=== PATIENT | male | born 1990 | race Caucasian/White ===

== ENCOUNTER 2016-07-08 22:15 | Emergency (ER) | payer BC, OTHER ==
[2016-07-08] MEDS ORDERED: GENTAMICIN 0.3% OPHTH SOL 5 ML BTL As Ordered ONE (23:18)
--- NOTE | 2016-07-08 23:29 | EDDOCDS ---
Physician Documentation [facility] Name: Ike Kennedy Age: 25 yrs Sex: Male : 1990 Arrival Date: 07/08/2016 Time: 22:15 Bed I1 Private MD: NO PRIMARY PHYSICIAN, . Disposition: 07/08/16 23:17 Discharged to Home/Self Care. Impression: Conjunctivitis - Acute, Bilateral. - Condition is Stable. - Discharge Instructions: Conjunctivitis (Viral and Bacterial). - Prescriptions for Gentamicin 0.3 % Ophthalmic Drops - instill 2 drops by OPHTHALMIC route every 4 hours for 7 days Treating Conjunctivitis both eyes; 1 bottle. - Medication Reconciliation, Local Pharmacy Hours, Referral List Call for Appointment form. - Follow up: [facility]; When: 1 - 2 days; Reason: Further diagnostic work-up, Recheck today's complaints, Continuance of care. [facility] ; When: 1 - 2 days; Reason: Recheck today's complaints, Continuance of care. Follow up: Emergency Department; Reason: Worsening of conditions. - Problem is new. - Symptoms have improved. Historical: - Allergies: PENICILLINS (Unknown); - Home Meds: 1. Ventolin Rotahaler/Rotacaps 200 mcg Inhl CpDv as needed - PMHx: Asthma; - PSHx: Tonsillectomy; - Social history: Smoking status: Patient states was never smoker of tobacco. No barriers to communication noted, Speaks appropriately for age. - Family history: No immediate family members are acutely ill. - : The pt / caregiver states he / she is not on anticoagulants. Home medication list is obtained from the patient. - Exposure Risk Screening:: None identified. Vital Signs: 07/08 22:16 BP 154 / 89; Pulse 52; Resp 18; Temp 96.5(O); Pulse Ox 100% on R/A; Weight 81.65 kg / lr2 180.01 lbs (R); Height 5 ft. 6 in. (167.64 cm) (R); Pain 5/10; 23:27 BP 144 / 97; Pulse 74; Resp 18; Temp 97.5; Pulse Ox 98% on R/A; Pain 4/10; nn1 22:16 Body Mass Index 29.05 (81.65 kg, 167.64 cm) lr2 Visual Acuity: 22:31 Left Eye Visual acuity 20/30, Pupil size 3 mm, ; Right Eye Visual acuity 20/30, Pupil cz size 3 mm, ; Both Eyes Visual acuity 20/30; Without Lenses; MDM: 23:14 Gentamicin Drops 0.3 % 2 drps Ophthalmic once; Both eyes please ordered. ef1 23:28 Financial registration complete. ks16 23:29 [facility] Payment Agreement was scanned into [employer] and attached to record. ks16 Administered Medications: 23:26 Drug: Gentamicin 2 drps [gentamicin 0.3 % eye drops (2 drps)] Route: Ophthalmic; Site: [facility] both eyes; Signatures: Jessica Fofana PA-C PAKamran ef1 Lazara Montejo RN RN rs3 Souleymane Sutherland RN RN nn1 Sunshine Puga, Reg Reg ks16 The chart was reviewed and I authenticate all verbal orders and agree with the evaluation and treatment provided.Attachments: 23:29 [facility] Payment Agreement ks16 MTDD
--- NOTE | 2016-07-08 23:29 | EDDOCDS ---
Nurse's Notes [facility] Name: Ike Kennedy Age: 25 yrs Sex: Male : 1990 Arrival Date: 07/08/2016 Time: 22:15 Bed I1 Private MD: NO PRIMARY PHYSICIAN, . Diagnosis: Conjunctivitis-Acute, Bilateral Presentation: 07/08 22:18 Presenting complaint: Patient states: redness and drainage in both eyes since this rs3 morning. L eye worse than the right. Mechanism of Injury: No Mechanism of Injury. The patient denies any loss of vision. Adult Sepsis Screening: The patient does not have new or worsening altered mentation. Patient's respiratory rate is less than 22. Systolic blood pressure is greater than 100. Patient has a qSOFA score of 0- Negative Sepsis Screen. Suicide/Homicide risk assessment- the patient denies having any suicidal and/or homicidal ideations and does not present with any other emotional, behavioral or mental health complaints. 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 Transition of care: patient was not received from another setting of care. 22:18 Acuity: JAZMIN Level 4 rs3 22:18 Method Of Arrival: Walkin/Carried/Asstd rs3 Triage Assessment: 22:20 General: Appears in no apparent distress. Pain: Location: left eye. Pt Declines HIV rs3 testing. EENT: Reports pain Pain is 3 out of 10 on a pain scale. Historical: - Allergies: PENICILLINS (Unknown); - Home Meds: 1. Ventolin Rotahaler/Rotacaps 200 mcg Inhl CpDv as needed - PMHx: Asthma; - PSHx: Tonsillectomy; - Social history: Smoking status: Patient states was never smoker of tobacco. No barriers to communication noted, Speaks appropriately for age. - Family history: No immediate family members are acutely ill. - : The pt / caregiver states he / she is not on anticoagulants. Home medication list is obtained from the patient. - Exposure Risk Screening:: None identified. Screenin:27 Screening information is obtained from the patient. Fall risk: No risks identified. nn1 Assistance ADL's: requires no assistance with activities of daily living. Abuse/DV Screen: The patient / caregiver reports he/she is: not in a situation that causes fear, pain or injury. Nutritional screening: No deficits noted. Advance Directives: There is no active DNR order. home support is adequate. Assessment: 22:30 General: alert male with bilateral eye discomfort no injury left sclera cloudy slightly cz reddened. EENT: Eyes are tearing on outer aspect of conjuctiva of right eye, inner aspect of conjuctiva of right eye, outer aspect of conjuctiva of left eye and inner aspect of conjunctiva of left eye Sclera/Cornea are cloudy in iris of right eye, inner aspect of conjuctiva of right eye, outer aspect of conjuctiva of left eye and inner aspect of conjunctiva of left eye. 23:26 EENT: Eyes are tearing on right eye and left eye Sclera/Cornea are reddened in right nn1 eye and left eye. Derm: Skin is pink, warm & dry. Vital Signs: 22:16 BP 154 / 89; Pulse 52; Resp 18; Temp 96.5(O); Pulse Ox 100% on R/A; Weight 81.65 kg lr2 (R); Height 5 ft. 6 in. (167.64 cm) (R); Pain 5/10; 23:27 BP 144 / 97; Pulse 74; Resp 18; Temp 97.5; Pulse Ox 98% on R/A; Pain 4/10; nn1 22:16 Body Mass Index 29.05 (81.65 kg, 167.64 cm) lr2 Vitals: 22:16 Log In Time: July 08, 2016 at 22:15. lr2 Visual Acuity: 22:31 Left Eye Visual acuity 20/30, Pupil size 3 mm, ; Right Eye Visual acuity 20/30, Pupil cz size 3 mm, ; Both Eyes Visual acuity 20/30; Without Lenses; ED Course: 22:15 Patient visited by Janna Miller. lr2 22:15 Patient moved to Waiting lr2 22:17 NO PRIMARY PHYSICIAN, . is Private Physician. lr2 22:17 Patient moved to Pre RCE lr2 22:19 Triage Initiated rs3 22:25 Patient moved to I10 / 23 cz 23:05 Jessica Fofana PA-C is PHCP. ef1 23:05 Karl Tena DO is Attending Physician. ef1 23:05 Patient visited by Jessica Fofana PA-C. ef1 23:17 G[facility] Kinney is Referral Physician. ef1 23:17 [facility] is Referral Physician. ef1 23:27 No IV's were initiated during this patient's visit. No procedures done that require nn1 assistance. 23:28 The patient / caregiver is instructed regarding the plan of care and ED course. nn1 23:29 [facility] Payment Agreement was scanned into [employer] and attached to record. ks16 Administered Medications: 23:26 Drug: Gentamicin 2 drps [gentamicin 0.3 % eye drops (2 drps)] Route: Ophthalmic; Site: nn both eyes; Order Results: There are currently no results for this order. Outcome: 23:17 Discharge ordered by Provider. ef1 23:27 Discharge Assessment: Patient awake, alert and oriented x 3. No cognitive and/or nn1 functional deficits noted. Patient verbalized understanding of disposition instructions. patient administered narcotics - no. The following High Risk Discharge criteria are identified: None. Discharged to home ambulatory, with friend. Condition: stable. Discharge instructions given to patient, Instructed on discharge instructions, follow up and referral plans. medication usage, Demonstrated understanding of instructions, medications, Pt was receptive of discharge instructions/ teaching. Prescriptions given X 1. No special radiology studies were completed. Property :Personal belongings accompany Pt. 23:28 Patient left the ED. nn1 Signatures: Boogie Cook, RN RN Jessica Garcia PA-C PA-C ef1 Lazara Montejo RN RN rs3 Souleymane Sutherland RN RN nn1 Sunshine Puga, Reg Reg ks16 Janna Miller2 MTDD
--- NOTE | 2016-07-11 00:29 | EDDOCDS ---
Nurse's Notes [facility] Name: Ike Kennedy Age: 25 yrs Sex: Male : 1990 Arrival Date: 07/08/2016 Time: 22:15 Bed I1 Private MD: NO PRIMARY PHYSICIAN, . Diagnosis: Conjunctivitis-Acute, Bilateral Presentation: 07/08 22:18 Presenting complaint: Patient states: redness and drainage in both eyes since this rs3 morning. L eye worse than the right. Mechanism of Injury: No Mechanism of Injury. The patient denies any loss of vision. Adult Sepsis Screening: The patient does not have new or worsening altered mentation. Patient's respiratory rate is less than 22. Systolic blood pressure is greater than 100. Patient has a qSOFA score of 0- Negative Sepsis Screen. Suicide/Homicide risk assessment- the patient denies having any suicidal and/or homicidal ideations and does not present with any other emotional, behavioral or mental health complaints. Status: Patient is not a director of special services or dependent. Transition of care: patient was not received from another setting of care. 22:18 Acuity: JAZMIN Level 4 rs3 22:18 Method Of Arrival: Walkin/Carried/Asstd rs3 Triage Assessment: 22:20 General: Appears in no apparent distress. Pain: Location: left eye. Pt Declines HIV rs3 testing. EENT: Reports pain Pain is 3 out of 10 on a pain scale. Historical: - Allergies: PENICILLINS (Unknown); - Home Meds: 1. Ventolin Rotahaler/Rotacaps 200 mcg Inhl CpDv as needed - PMHx: Asthma; - PSHx: Tonsillectomy; - Social history: Smoking status: Patient states was never smoker of tobacco. No barriers to communication noted, Speaks appropriately for age. - Family history: No immediate family members are acutely ill. - : The pt / caregiver states he / she is not on anticoagulants. Home medication list is obtained from the patient. - Exposure Risk Screening:: None identified. Screenin:27 Screening information is obtained from the patient. Fall risk: No risks identified. nn1 Assistance ADL's: requires no assistance with activities of daily living. Abuse/DV Screen: The patient / caregiver reports he/she is: not in a situation that causes fear, pain or injury. Nutritional screening: No deficits noted. Advance Directives: There is no active DNR order. home support is adequate. Assessment: 22:30 General: alert male with bilateral eye discomfort no injury left sclera cloudy slightly cz reddened. EENT: Eyes are tearing on outer aspect of conjuctiva of right eye, inner aspect of conjuctiva of right eye, outer aspect of conjuctiva of left eye and inner aspect of conjunctiva of left eye Sclera/Cornea are cloudy in iris of right eye, inner aspect of conjuctiva of right eye, outer aspect of conjuctiva of left eye and inner aspect of conjunctiva of left eye. 23:26 EENT: Eyes are tearing on right eye and left eye Sclera/Cornea are reddened in right nn1 eye and left eye. Derm: Skin is pink, warm & dry. Vital Signs: 22:16 BP 154 / 89; Pulse 52; Resp 18; Temp 96.5(O); Pulse Ox 100% on R/A; Weight 81.65 kg lr2 (R); Height 5 ft. 6 in. (167.64 cm) (R); Pain 5/10; 23:27 BP 144 / 97; Pulse 74; Resp 18; Temp 97.5; Pulse Ox 98% on R/A; Pain 4/10; nn1 22:16 Body Mass Index 29.05 (81.65 kg, 167.64 cm) lr2 Vitals: 22:16 Log In Time: July 08, 2016 at 22:15. lr2 Visual Acuity: 22:31 Left Eye Visual acuity 20/30, Pupil size 3 mm, ; Right Eye Visual acuity 20/30, Pupil cz size 3 mm, ; Both Eyes Visual acuity 20/30; Without Lenses; ED Course: 22:15 Patient visited by Janna Miller. lr2 22:15 Patient moved to Waiting lr2 22:17 NO PRIMARY PHYSICIAN, . is Private Physician. lr2 22:17 Patient moved to Pre RCE lr2 22:19 Triage Initiated rs3 22:25 Patient moved to I10 / 23 cz 23:05 Jessica Fofana PA-C is PHCP. ef1 23:05 Karl Tena DO is Attending Physician. ef1 23:05 Patient visited by Jessica Fofana PA-C. ef1 23:17 Gerson Kinney is Referral Physician. ef1 23:17 [facility] is Referral Physician. ef1 23:27 No IV's were initiated during this patient's visit. No procedures done that require nn1 assistance. 23:28 The patient / caregiver is instructed regarding the plan of care and ED course. nn1 23:29 [facility] Payment Agreement was scanned into [employer] and attached to record. ks16 23:29 [facility] Payment Agreement was scanned into [employer] and attached to record. ks16 07/09 17:41 T-Sheet-- Draft Copy was scanned into [employer] and attached to record. klr Administered Medications: 07/08 23:26 Drug: Gentamicin 2 drps [gentamicin 0.3 % eye drops (2 drps)] Route: Ophthalmic; Site: [facility] both eyes; Order Results: There are currently no results for this order. Outcome: 23:17 Discharge ordered by Provider. ef1 23:27 Discharge Assessment: Patient awake, alert and oriented x 3. No cognitive and/or nn1 functional deficits noted. Patient verbalized understanding of disposition instructions. patient administered narcotics - no. The following High Risk Discharge criteria are identified: None. Discharged to home ambulatory, with friend. Condition: stable. Discharge instructions given to patient, Instructed on discharge instructions, follow up and referral plans. medication usage, Demonstrated understanding of instructions, medications, Pt was receptive of discharge instructions/ teaching. Prescriptions given X 1. No special radiology studies were completed. Property :Personal belongings accompany Pt. 23:28 Patient left the ED. nn1 Signatures: Boogie Cook RN RN cz Feola, Erica, PA-C PA-C ef1 Lazara Montejo RN RN rs3 Souleymane Sutherland RN RN nn1 Sunshine Puga, Reg Reg ks16 Jessi Wilburn Laura lr2 Chart Complete MTDD
--- NOTE | 2016-07-11 00:29 | EDDOCDS ---
Physician Documentation [facility] Name: Ike Kennedy Age: 25 yrs Sex: Male : 1990 Arrival Date: 07/08/2016 Time: 22:15 Bed I1 Private MD: NO PRIMARY PHYSICIAN, . Disposition: 07/08/16 23:17 Discharged to Home/Self Care. Impression: Conjunctivitis - Acute, Bilateral. - Condition is Stable. - Discharge Instructions: Conjunctivitis (Viral and Bacterial). - Prescriptions for Gentamicin 0.3 % Ophthalmic Drops - instill 2 drops by OPHTHALMIC route every 4 hours for 7 days Treating Conjunctivitis both eyes; 1 bottle. - Medication Reconciliation, Local Pharmacy Hours, Referral List Call for Appointment form. - Follow up: [facility]; When: 1 - 2 days; Reason: Further diagnostic work-up, Recheck today's complaints, Continuance of care. Follow [facility] ; When: 1 - 2 days; Reason: Recheck today's complaints, Continuance of care. Follow up: Emergency Department; Reason: Worsening of conditions. - Problem is new. - Symptoms have improved. Historical: - Allergies: PENICILLINS (Unknown); - Home Meds: 1. Ventolin Rotahaler/Rotacaps 200 mcg Inhl CpDv as needed - PMHx: Asthma; - PSHx: Tonsillectomy; - Social history: Smoking status: Patient states was never smoker of tobacco. No barriers to communication noted, Speaks appropriately for age. - Family history: No immediate family members are acutely ill. - : The pt / caregiver states he / she is not on anticoagulants. Home medication list is obtained from the patient. - Exposure Risk Screening:: None identified. Vital Signs: 07/08 22:16 BP 154 / 89; Pulse 52; Resp 18; Temp 96.5(O); Pulse Ox 100% on R/A; Weight 81.65 kg / lr2 180.01 lbs (R); Height 5 ft. 6 in. (167.64 cm) (R); Pain 5/10; 23:27 BP 144 / 97; Pulse 74; Resp 18; Temp 97.5; Pulse Ox 98% on R/A; Pain 4/10; nn1 22:16 Body Mass Index 29.05 (81.65 kg, 167.64 cm) lr2 Visual Acuity: 22:31 Left Eye Visual acuity 20/30, Pupil size 3 mm, ; Right Eye Visual acuity 20/30, Pupil cz size 3 mm, ; Both Eyes Visual acuity 20/30; Without Lenses; MDM: 23:14 Gentamicin Drops 0.3 % 2 drps Ophthalmic once; Both eyes please ordered. ef1 23:28 Financial registration complete. [facility] : [place] Payment Agreement was scanned into [employer] and attached to record. ks : [place] Payment Agreement was scanned into [employer] and attached to record. 07/09 17:41 T-Sheet-- Draft Copy was scanned into [employer] and attached to record. klr Administered Medications: 07/08 23:26 Drug: Gentamicin 2 drps [gentamicin 0.3 % eye drops (2 drps)] Route: Ophthalmic; Site: [facility] both eyes; Signatures: Jessica Fofana, MONICA ANDERSON ef1 Lazara Montejo RN RN rs3 Souleymane Sutherland RN RN nn1 Sunshine Puga, Reg Reg ks16 Jessi Wilburn klr The chart was reviewed and I authenticate all verbal orders and agree with the evaluation and treatment provided.Attachments: : [place] Payment Agreement ks [place] Payment Agreement [facility] 07/09 17:41 T-Sheet-- Draft Copy klr Chart Complete MTDD
--- NOTE | 2016-07-11 00:29 | EDDOCDS ---
Physician Documentation [facility] Name: Ike Kennedy Age: 25 yrs Sex: Male : 1990 Arrival Date: 07/08/2016 Time: 22:15 Bed I1 Private MD: NO PRIMARY PHYSICIAN, . Disposition: 07/08/16 23:17 Discharged to Home/Self Care. Impression: Conjunctivitis - Acute, Bilateral. - Condition is Stable. - Discharge Instructions: Conjunctivitis (Viral and Bacterial). - Prescriptions for Gentamicin 0.3 % Ophthalmic Drops - instill 2 drops by OPHTHALMIC route every 4 hours for 7 days Treating Conjunctivitis both eyes; 1 bottle. - Medication Reconciliation, Local Pharmacy Hours, Referral List Call for Appointment form. - Follow up: [facility]; When: 1 - 2 days; Reason: Further diagnostic work-up, Recheck today's complaints, Continuance of care. Follow [facility] ; When: 1 - 2 days; Reason: Recheck today's complaints, Continuance of care. Follow up: Emergency Department; Reason: Worsening of conditions. - Problem is new. - Symptoms have improved. Historical: - Allergies: PENICILLINS (Unknown); - Home Meds: 1. Ventolin Rotahaler/Rotacaps 200 mcg Inhl CpDv as needed - PMHx: Asthma; - PSHx: Tonsillectomy; - Social history: Smoking status: Patient states was never smoker of tobacco. No barriers to communication noted, Speaks appropriately for age. - Family history: No immediate family members are acutely ill. - : The pt / caregiver states he / she is not on anticoagulants. Home medication list is obtained from the patient. - Exposure Risk Screening:: None identified. Vital Signs: 07/08 22:16 BP 154 / 89; Pulse 52; Resp 18; Temp 96.5(O); Pulse Ox 100% on R/A; Weight 81.65 kg / lr2 180.01 lbs (R); Height 5 ft. 6 in. (167.64 cm) (R); Pain 5/10; 23:27 BP 144 / 97; Pulse 74; Resp 18; Temp 97.5; Pulse Ox 98% on R/A; Pain 4/10; nn1 22:16 Body Mass Index 29.05 (81.65 kg, 167.64 cm) lr2 Visual Acuity: 22:31 Left Eye Visual acuity 20/30, Pupil size 3 mm, ; Right Eye Visual acuity 20/30, Pupil cz size 3 mm, ; Both Eyes Visual acuity 20/30; Without Lenses; MDM: 23:14 Gentamicin Drops 0.3 % 2 drps Ophthalmic once; Both eyes please ordered. ef1 23:28 Financial registration complete. [facility] : [place] Payment Agreement was scanned into [employer] and attached to record. ks : [place] Payment Agreement was scanned into [employer] and attached to record. 07/09 17:41 T-Sheet-- Draft Copy was scanned into [employer] and attached to record. klr Administered Medications: 07/08 23:26 Drug: Gentamicin 2 drps [gentamicin 0.3 % eye drops (2 drps)] Route: Ophthalmic; Site: [facility] both eyes; Signatures: Jessica Fofana, MONICA ANDERSON ef1 Lazara Montejo RN RN rs3 Souleymane Sutherland RN RN nn1 Sunshine Puga, Reg Reg ks16 Jessi Wilburn klr The chart was reviewed and I authenticate all verbal orders and agree with the evaluation and treatment provided.Attachments: : [place] Payment Agreement ks [place] Payment Agreement [facility] 07/09 17:41 T-Sheet-- Draft Copy klr Chart Complete MTDD
== END 2016-07-08 23:28 | disposition home or self-care (01) ==
LOC: M ED 22:15
DX: H10.31 Unspecified acute conjunctivitis, right eye (principal); J45.909 Unspecified asthma, uncomplicated; Z88.0 Allergy status to penicillin

== ENCOUNTER 2016-10-27 17:11 | Emergency (ER) | payer BC, OTHER ==
[~2016-10-27] VITALS: Ht 167.6 cm; Wt 87.9 kg
[2016-10-27 17:12] VITALS: BP 156/99
[2016-10-27] MEDS ORDERED: ALBU17IN2 INH (18:04)
== END 2016-10-27 18:15 | disposition home or self-care (01) ==
LOC: M ED 17:48
DX: Z76.0 Encounter for issue of repeat prescription (principal); J45.909 Unspecified asthma, uncomplicated; Z88.0 Allergy status to penicillin

== ENCOUNTER → 2020-01-22 | Outpatient (REF) | payer OTHER ==
[~2020-01-22] MED LIST: ALBU17IN2 INH
[2020-01-22 12:55] LABS: BASO # 0.1 10^3/uL (0.0-0.2); BASO % 0.7 % (0.0-1.0); EOS # 0.3 10^3/uL (0.0-0.5); EOS % 4.3 % (0.0-3.0); HEMATOCRIT 49.9 % (42.0-52.0); HEMOGLOBIN 17.3 g/dl (13.5-17.5); LYMPH # 2.7 10^3/uL (1.5-5.0); LYMPH % 36.8 % (24.0-44.0); MEAN CORPUSCULAR HEMOGLOBIN 30.1 pg (27.0-33.0); MEAN CORPUSCULAR HGB CONC 34.7 g/dl (32.0-36.5); MEAN CORPUSCULAR VOLUME 86.8 fl (80.0-96.0); MONO # 0.5 10^3/uL (0.0-0.8); MONO % 6.6 % (0.0-5.0); NEUTROPHILS # 3.8 10^3/uL (1.5-8.5); NEUTROPHILS % 51.3 % (36.0-66.0); PLATELET COUNT, AUTOMATED 257 10^3/uL (150-450); RED BLOOD COUNT 5.75 10^6/uL (4.30-6.10); WHITE BLOOD COUNT 7.4 10^3/uL (4.0-10.0)
[2020-01-22 13:10] LABS: ALBUMIN 4.1 GM/DL (3.2-5.2); ALT/SGPT 38 U/L (12-78); BILIRUBIN,TOTAL 0.8 MG/DL (0.2-1.0); BLOOD UREA NITROGEN 11 MG/DL (7-18); CALCIUM LEVEL 8.8 MG/DL (8.5-10.1); CARBON DIOXIDE LEVEL 28 MEQ/L (21-32); CHLORIDE LEVEL 106 MEQ/L (98-107); CHOLESTEROL LEVEL 188 MG/DL (<200); CREATININE FOR GFR 1.16 MG/DL (0.70-1.30); FREE T4 1.02 NG/DL (0.76-1.46); GLOMERULAR FILTRATION RATE > 60.0 (>60); GLUCOSE, FASTING 92 MG/DL (70-100); HDL CHOLESTEROL 39 MG/DL (>40); LDL CHOLESTEROL 129 MG/DL (<100); NON-HDL-C 149 MG/DL; POTASSIUM SERUM 3.6 MEQ/L (3.5-5.1); SODIUM LEVEL 138 MEQ/L (136-145); TOTAL PROTEIN 7.2 GM/DL (6.4-8.2); TRIGLYCERIDES LEVEL 99 MG/DL (<150)
[2020-01-22 13:11] LABS: TOTAL 25(OH) VITAMIN D 12.2 NG/ML (30.0-100.0)
== END ==
LOC: M LAB REF 11:11
PROVIDERS: ATTEND Physician Assistant
DX: R03.0 Elevated blood-pressure reading, without diagnosis of hypertension (principal); Z82.49 Family history of ischemic heart disease and other diseases of the circulatory system; Z83.3 Family history of diabetes mellitus; G56.02 Carpal tunnel syndrome, left upper limb; Z00.01 Encounter for general adult medical examination with abnormal findings; J45.20 Mild intermittent asthma, uncomplicated; E66.09 Other obesity due to excess calories; Z68.33 Body mass index [BMI] 33.0-33.9, adult

== ENCOUNTER → 2020-02-26 | Outpatient (REF) | payer OTHER ==
[2020-02-26 16:03] LABS: BLOOD UREA NITROGEN 12 MG/DL (7-18); CARBON DIOXIDE LEVEL 27 MEQ/L (21-32); CHLORIDE LEVEL 106 MEQ/L (98-107); CREATININE FOR GFR 1.18 MG/DL (0.70-1.30); GLOMERULAR FILTRATION RATE > 60.0 (>60); GLUCOSE, FASTING 82 MG/DL (70-100); POTASSIUM SERUM 4.9 MEQ/L (3.5-5.1); SODIUM LEVEL 138 MEQ/L (136-145)
== END ==
LOC: M LAB REF 15:11
PROVIDERS: ATTEND Physician Assistant
DX: I10 Essential (primary) hypertension (principal)

== ENCOUNTER → 2020-06-03 | Outpatient (REF) | payer OTHER ==
[2020-06-03 16:40] LABS: ALBUMIN 4.3 GM/DL (3.2-5.2); ALT/SGPT 34 U/L (12-78); BILIRUBIN,TOTAL 1.1 MG/DL (0.2-1.0); BLOOD UREA NITROGEN 15 MG/DL (7-18); CALCIUM LEVEL 10.2 MG/DL (8.5-10.1); CARBON DIOXIDE LEVEL 28 MEQ/L (21-32); CHLORIDE LEVEL 105 MEQ/L (98-107); CREATININE FOR GFR 1.28 MG/DL (0.70-1.30); GLOMERULAR FILTRATION RATE > 60.0 (>60); GLUCOSE, FASTING 85 MG/DL (70-100); POTASSIUM SERUM 4.4 MEQ/L (3.5-5.1); SODIUM LEVEL 139 MEQ/L (136-145); TOTAL PROTEIN 7.3 GM/DL (6.4-8.2)
== END ==
LOC: M LAB REF 15:45
PROVIDERS: ATTEND Physician Assistant
DX: I10 Essential (primary) hypertension (principal)

== ENCOUNTER → 2020-11-04 | Outpatient (CLI) | payer OTHER ==
[2020-11-04 12:00] LABS: BASO # 0.1 10^3/uL (0.0-0.2); BASO % 0.7 % (0.0-1.0); EOS # 0.1 10^3/uL (0.0-0.5); EOS % 1.8 % (0.0-3.0); HEMATOCRIT 52.7 % (42.0-52.0); HEMOGLOBIN 17.9 g/dl (13.5-17.5); LYMPH # 2.6 10^3/uL (1.5-5.0); LYMPH % 34.5 % (24.0-44.0); MEAN CORPUSCULAR VOLUME 88.4 fl (80.0-96.0); MONO # 0.5 10^3/uL (0.0-0.8); MONO % 7.1 % (2.0-8.0); NEUTROPHILS # 4.2 10^3/uL (1.5-8.5); NEUTROPHILS % 55.4 % (36.0-66.0); PLATELET COUNT, AUTOMATED 271 10^3/uL (150-450); RED BLOOD COUNT 5.96 10^6/uL (4.30-6.10); WHITE BLOOD COUNT 7.6 10^3/uL (4.0-10.0)
[2020-11-04 12:46] LABS: ALBUMIN 4.4 GM/DL (3.2-5.2); ALT/SGPT 45 U/L (12-78); BILIRUBIN,TOTAL 0.6 MG/DL (0.2-1.0); BLOOD UREA NITROGEN 12 MG/DL (7-18); CALCIUM LEVEL 9.8 MG/DL (8.5-10.1); CARBON DIOXIDE LEVEL 26 MEQ/L (21-32); CHLORIDE LEVEL 107 MEQ/L (98-107); CHOLESTEROL LEVEL 186 MG/DL (<200); CHOLESTEROL RISK RATIO 5.166 (<5); CREATININE FOR GFR 1.23 MG/DL (0.70-1.30); GLOMERULAR FILTRATION RATE > 60.0 (>60); GLUCOSE, FASTING 82 MG/DL (70-100); HDL CHOLESTEROL 36 MG/DL (>40); LDL CHOLESTEROL 126 MG/DL (<100); NON-HDL-C 150 MG/DL; POTASSIUM SERUM 4.8 MEQ/L (3.5-5.1); SODIUM LEVEL 138 MEQ/L (136-145); TOTAL PROTEIN 7.7 GM/DL (6.4-8.2); TRIGLYCERIDES LEVEL 119 MG/DL (<150)
== END ==
LOC: M LAB 10:58
PROVIDERS: ATTEND Physician Assistant
DX: L70.0 Acne vulgaris (principal)

== ENCOUNTER 2021-07-17 02:01 | Emergency (ER) | payer OTHER ==
[~2021-07-17] VITALS: Ht 167.6 cm; Wt 86.4 kg
[2021-07-17] MEDS ORDERED: LISI20TA33 PO (02:09)
[2021-07-17] MEDS ORDERED: AMPH1TAB2 PO (02:09)
[2021-07-17] MEDS ORDERED: NS 1,000 ML IV ONE (03:15)
[2021-07-17 03:41] LABS: BASO # 0.1 10^3/uL (0.0-0.2); BASO % 0.5 % (0.0-1.0); EOS # 0.2 10^3/uL (0.0-0.5); EOS % 1.9 % (0.0-3.0); HEMATOCRIT 47.9 % (42.0-52.0); HEMOGLOBIN 16.9 g/dl (13.5-17.5); LYMPH # 3.9 10^3/uL (1.5-5.0); MEAN CORPUSCULAR HEMOGLOBIN 30.3 pg (27.0-33.0); MEAN CORPUSCULAR HGB CONC 35.3 g/dl (32.0-36.5); MEAN CORPUSCULAR VOLUME 85.8 fl (80.0-96.0); MONO # 0.7 10^3/uL (0.0-0.8); NEUTROPHILS # 6.3 10^3/uL (1.5-8.5); NEUTROPHILS % 56.2 % (36.0-66.0); PLATELET COUNT, AUTOMATED 290 10^3/uL (150-450); RED BLOOD COUNT 5.58 10^6/uL (4.30-6.10); WHITE BLOOD COUNT 11.2 10^3/uL (4.0-10.0)
[2021-07-17 03:57] LABS: BLOOD UREA NITROGEN 14 MG/DL (7-18); CALCIUM LEVEL 9.1 MG/DL (8.5-10.1); CARBON DIOXIDE LEVEL 27 MEQ/L (21-32); CHLORIDE LEVEL 106 MEQ/L (98-107); CREATININE FOR GFR 1.36 MG/DL (0.70-1.30); GLOMERULAR FILTRATION RATE > 60.0 (>60); GLUCOSE, FASTING 90 MG/DL (70-100); POTASSIUM SERUM 4.3 MEQ/L (3.5-5.1); SODIUM LEVEL 138 MEQ/L (136-145)
[2021-07-17 04:04] LABS: CK-MB VALUE MASS < 1.0 NG/ML (<3.6); CPK CREATINE PHOSPHOKINASE 130 U/L (39-308); MB/CK RELATIVE INDEX 0.77 (< OR =4)
[2021-07-17 06:15] VITALS: BP 108/65
== END 2021-07-17 07:58 | disposition home or self-care (01) ==
LOC: M ED 02:01
DX: R07.9 Chest pain, unspecified (principal); R00.2 Palpitations; R53.1 Weakness; T43.625A Adverse effect of amphetamines, initial encounter; F90.9 Attention-deficit hyperactivity disorder, unspecified type; J45.909 Unspecified asthma, uncomplicated; Z88.0 Allergy status to penicillin; Z79.899 Other long term (current) drug therapy

== ENCOUNTER → 2022-05-19 | Outpatient (REF) | payer OTHER ==
[~2022-05-19] MED LIST changes: +AMPH1TAB2 PO; +LISI20TA33 PO
[2022-05-19 16:56] LABS: HEMATOCRIT 51.6 % (42.0-52.0); HEMOGLOBIN 17.3 g/dl (13.5-17.5); MEAN CORPUSCULAR HEMOGLOBIN 30.4 pg (27.0-33.0); MEAN CORPUSCULAR HGB CONC 33.5 g/dl (32.0-36.5); MEAN CORPUSCULAR VOLUME 90.7 fl (80.0-96.0); PLATELET COUNT, AUTOMATED 255 10^3/uL (150-450); RED BLOOD COUNT 5.69 10^6/uL (4.30-6.10); WHITE BLOOD COUNT 7.3 10^3/uL (4.0-10.0)
[2022-05-19 17:01] LABS: ALBUMIN 4.2 G/DL (3.2-5.2); ALKALINE PHOSPHATASE 93 U/L (46-116); ALT/SGPT 39 U/L (7.0-40); AST/SGOT 23 U/L (<34); BLOOD UREA NITROGEN 9 MG/DL (9-23); CALCIUM LEVEL 9.5 MG/DL (8.5-10.1); CARBON DIOXIDE LEVEL 26 MMOL/L (20-31); CHLORIDE LEVEL 102 MMOL/L (98-107); CHOLESTEROL LEVEL 178 MG/DL (<200); CHOLESTEROL RISK RATIO 4.46 (<5); CREATININE FOR GFR 1.15 MG/DL (0.70-1.30); GLOMERULAR FILTRATION RATE > 60.0 (>60); GLUCOSE, FASTING 75 MG/DL (60-100); HDL CHOLESTEROL 39.9 MG/DL (>40); LDL CHOLESTEROL 107.3 MG/DL (<100); NON-HDL-C 138 MG/DL; POTASSIUM SERUM 4.5 MMOL/L (3.5-5.1); SODIUM LEVEL 138 MMOL/L (136-145); TOTAL PROTEIN 7.4 G/DL (5.7-8.2); TRIGLYCERIDES LEVEL 154 MG/DL (<150)
[2022-05-19 17:02] LABS: TOTAL 25(OH) VITAMIN D 48.7 NG/ML (20.0-100.0)
[2022-05-19 17:33] LABS: HIV 1&2 SCREEN CENTAUR NEGATIVE (NEGATIVE)
[2022-05-19 20:00] LABS: HEPATITIS C VIRUS ABY INDEX 0.1 INDEX (<0.8)
== END ==
LOC: M LAB REF 16:12
PROVIDERS: ATTEND Physician Assistant
DX: Z11.59 Encounter for screening for other viral diseases (principal); Z11.4 Encounter for screening for human immunodeficiency virus [HIV]; I10 Essential (primary) hypertension; E55.9 Vitamin D deficiency, unspecified; E78.5 Hyperlipidemia, unspecified

== ENCOUNTER → 2022-08-21 | Outpatient (CLI) | payer OTHER | LOC: M EKG 09:21 | PROVIDERS: ATTEND Physician Assistant | DX: R00.2 Palpitations (principal) ==

== ENCOUNTER 2022-12-10 08:22 | Day surgery (SDC) | payer OTHER ==
[~2022-12-10] VITALS: Ht 167.6 cm; Wt 86.4 kg
[~2022-12-10 08:22] MED LIST changes: +BUPR75TA5 PO; +CLIN-250 PO; +TEMA30CA PO; +UNRESOLVED CLARIFICATION ENTRY XX SCH; +VITA500075 PO
[2022-12-10] MEDS ORDERED: LR 1,000 ML IV SCH ×2 (08:30→12:10)
[2022-12-10] MEDS ORDERED: ceFAZolin SOD 2 GM in IV 1 EA IV ONE (09:15)
[2022-12-10] MEDS ORDERED: LIDOCAINE 2% 100MG/5ML SDV (FOR ANES.) As Ordered ONE (10:00)
[2022-12-10] MEDS ORDERED: ROCURONIUM BROMIDE 50MG/5ML VIAL As Ordered ONE (10:00)
[2022-12-10] MEDS ORDERED: SUGAMMADEX SODIUM 500 MG/5 ML VIAL (BRIDION) As Ordered ONE (10:00)
[2022-12-10] MEDS ORDERED: propofoL 200 MG/20 ML VIAL As Ordered ONE (10:00)
[2022-12-10] MEDS ORDERED: ONDANSETRON 4MG 2ML VIAL As Ordered ONE (10:00)
[2022-12-10] MEDS ORDERED: MIDAZOLAM INJ 2MG/2ML VIAL As Ordered ONE (10:09)
[2022-12-10] MEDS ORDERED: fentaNYL 100 MCG/2 ML INJECTION As Ordered ONE (10:09)
[2022-12-10] MEDS ORDERED: CHLORHEXIDINE GLUCONATE 0.12 % 15ML UDC (PERIDEX ORAL RINSE) As Ordered ONE (10:48)
[2022-12-10] MEDS ORDERED: LIDOCAINE 2% W/ EPINEPHRINE 1.7 ML DENTAL INJ As Ordered ONE (10:49)
[2022-12-10] MEDS ORDERED: ACETAMINOPHEN 1000MG 100ML IV BAG As Ordered ONE (11:32)
[2022-12-10] MEDS ORDERED: ONDANSETRON 4MG 2ML VIAL IV PRN (12:10)
[2022-12-10] MEDS ORDERED: oxyCODONE 5MG TAB PO PRN (12:10)
[2022-12-10] MEDS ORDERED: fentaNYL 100 MCG/2 ML INJECTION IV PRN (12:10)
[2022-12-10] MEDS ORDERED: HYDROMORPHONE HCL 0.5 MG/ 0.5 ML SYRINGE IV PRN (12:10)
[2022-12-10 13:05] VITALS: BP 153/89; TEMP 97.4; O2SAT 96
== END 2022-12-10 13:38 | disposition home or self-care (01) ==
LOC: M SDC 08:22
PROVIDERS: ATTEND Dentist
DX: K02.9 Dental caries, unspecified (principal); I10 Essential (primary) hypertension; F41.9 Anxiety disorder, unspecified; F32.A Depression, unspecified; J45.909 Unspecified asthma, uncomplicated; Z88.0 Allergy status to penicillin; Z79.899 Other long term (current) drug therapy
CPT/HCPCS: 88300; D7210; D9223; J0131; J0690; J1100; J2250; J2405; J3010

== ENCOUNTER → 2024-06-07 | Outpatient (REF) | payer OTHER ==
[~2024-06-07] MED LIST changes: -UNRESOLVED CLARIFICATION ENTRY XX SCH
[2024-06-07 15:27] LABS: HEMOGLOBIN 17.9 g/dl (13.5-17.5); MEAN CORPUSCULAR HEMOGLOBIN 29.7 pg (27.0-33.0); MEAN CORPUSCULAR HGB CONC 34.4 g/dl (32.0-36.5); MEAN CORPUSCULAR VOLUME 86.4 fl (80.0-96.0); PLATELET COUNT, AUTOMATED 280 10^3/uL (150-450); RED BLOOD COUNT 6.02 10^6/uL (4.30-6.10); WHITE BLOOD COUNT 7.3 10^3/uL (4.0-10.0)
[2024-06-07 16:03] LABS: ALBUMIN 4.4 G/DL (3.2-5.2); ALKALINE PHOSPHATASE 97 U/L (40-129); ALT/SGPT 39 U/L (7.0-40); AST/SGOT 18 U/L (<34); BILIRUBIN,TOTAL 1.1 MG/DL (0.3-1.2); BLOOD UREA NITROGEN 13 MG/DL (9-23); CALCIUM LEVEL 9.6 MG/DL (8.5-10.1); CARBON DIOXIDE LEVEL 28 MMOL/L (20-31); CHLORIDE LEVEL 106 MMOL/L (98-107); CHOLESTEROL LEVEL 225 MG/DL (<200); CHOLESTEROL RISK RATIO 5.47 (<5); CREATININE FOR GFR 1.32 MG/DL (0.70-1.30); GLOMERULAR FILTRATION RATE > 60.0 (>60); GLUCOSE, FASTING 83 MG/DL (60-100); HDL CHOLESTEROL 41.1 MG/DL (>40); LDL CHOLESTEROL 155.9 MG/DL (<100); NON-HDL-C 183.9 MG/DL; POTASSIUM SERUM 4.5 MMOL/L (3.5-5.1); SODIUM LEVEL 141 MMOL/L (136-145); TOTAL PROTEIN 7.4 G/DL (5.7-8.2); TRIGLYCERIDES LEVEL 140 MG/DL (<150)
[2024-06-07 16:05] LABS: TOTAL 25(OH) VITAMIN D 25.6 NG/ML (20.0-100.0)
== END ==
LOC: M LAB REF 13:48
PROVIDERS: ATTEND Physician Assistant
DX: E78.5 Hyperlipidemia, unspecified (principal); E55.9 Vitamin D deficiency, unspecified

== ENCOUNTER → 2024-07-30 | Outpatient (REF) | payer OTHER ==
[2024-07-30 16:25] LABS: ALBUMIN 4.4 G/DL (3.2-5.2); BLOOD UREA NITROGEN 11 MG/DL (9-23); CALCIUM LEVEL 9.4 MG/DL (8.5-10.1); CARBON DIOXIDE LEVEL 26 MMOL/L (20-31); CHLORIDE LEVEL 105 MMOL/L (98-107); CREATININE FOR GFR 1.27 MG/DL (0.70-1.30); GLOMERULAR FILTRATION RATE > 60.0 (>60); GLUCOSE, FASTING 85 MG/DL (60-100); PHOSPHORUS LEVEL 2.7 MG/DL (2.5-4.9); POTASSIUM SERUM 4.9 MMOL/L (3.5-5.1); SODIUM LEVEL 138 MMOL/L (136-145)
== END ==
LOC: M LAB REF 15:32
PROVIDERS: ATTEND Physician Assistant
DX: I10 Essential (primary) hypertension (principal)